=== PATIENT | male | born 1975 | race Caucasian/White ===

== ENCOUNTER 2020-07-20 09:03 | Emergency (ER) | payer OTHER ==
[2020-07-20 09:07] VITALS: BP 144/89; PULSE 84; TEMP 98.7; BMI 26.6
--- NOTE | 2020-07-20 09:23 | PDOC ---
History of Present Illness - General Chief Complaint: Rash Stated Complaint: RASH Time Seen by Provider: 07/20/20 09:10 History Source: Patient Exam Limitations: No Limitations - History of Present Illness Initial Comments: 07/20/20 09:36 Patient is a 45-year-old male with no past medical history who presents to the ED with complaint of a rash on his left ankle that itches and arias for the last 3 weeks. 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 He denies any fevers or chills. He denies any rash elsewhere. He denies being outdoors or in the [place] very much. He has not taken anything for symptoms. He does admit to scratching the rash vigorously yesterday. He does state that the rash is getting bigger. Past History - Medical History Allergies/Adverse Reactions: Allergies Allergy/AdvReac Type Severity Reaction Status Date / Time No Known Allergies Allergy Verified 07/20/20 09:05 Home Medications: Ambulatory Orders Cephalexin [Keflex] 500 mg PO BID 7 Days #14 capsule 07/20/20 Clotrimazole/Betamethasone Dip [Clotrimazole-Betamethasone Crm] 45 gm TP BID 7 Days #1 tube 07/20/20 COPD: No Other medical history: DENIES - Immunization History Immunization Up to Date: Yes - Psycho-Social/Smoking History Smoking History: Never smoked - Substance Abuse Hx (Audit-C & DAST Scrn) How often the patient has a drink containing alcohol: Never Score: In Men: 4 or > Positive; In Women: 3 or > Positive: 0 Screen Result (Pos requires Nsg. Audit-10AR): Negative In the last yr the pt used illegal drug/Rx for NonMed reason: No Score: Yes response is considered Positive: 0 Screen Result (Positive result requires Nsg. DAST-10): Negative Review of Systems - Review of Systems Comments:: 07/20/20 09:37 - Review of Systems Able to Perform ROS?: Yes Constitutional: No: Fever, Chills, Loss of Appetite, Night Sweats, Weakness HEENTM: No: Eye Pain, Vision changes, Ear Pain, Throat Pain, Throat Swelling, Mouth Pain, Difficulty Swallowing Respiratory: No: Cough, Shortness of Breath, Wheezing, Sputum Production Cardiac (ROS): No: Chest Pain, Chest Tightness, Palpitations, Irregular Heart Beat, Edema ABD/GI: No: Nausea, Vomiting, Abdominal Pain, Diarrhea Musculoskeletal: No: Muscle Pain, Back Pain, Joint Pain, Muscle Weakness, Neck Pain Integumentary: No: Lesions, positive: Rash on the left ankle Neurological: No: Headache, Numbness, Tingling, Weakness, Speech Difficulties *Physical Exam - Vital Signs Last Vital Signs Temp Pulse Resp BP Pulse Ox 98.7 F 84 18 144/89 100 07/20/20 09:05 07/20/20 09:05 07/20/20 09:05 07/20/20 09:05 07/20/20 09:05 - Physical Exam 07/20/20 09:37 - Physical Exam General Appearance: Nourished, Appropriately Dressed, No Distress HEENT: EOMI, Normal Voice, Hearing Grossly Normal Neck: Supple, No Lymphadenopathy (R), No Lymphadenopathy (L), No Rigidity, No Decreased range of motion Respiratory/Chest: Lungs Clear, Normal Breath Sounds. No Respiratory Distress, No Accessory Muscle Use Cardiovascular: Regular Rhythm, Regular Rate, S1, S2 Musculoskeletal: Normal Inspection. No Decreased Range of Motion Extremity: Normal Capillary Refill, Normal Inspection Integumentary: Normal Color, Dry. There is a well-circumscribed rash to the left ankle with scaly borders and central clearing consistent with tinea corporis. There are also multiple maculopapular lesions surrounding the rash. There is no vesicles. There is no drainage. There is no tenderness to palpation. There is mild warmth to touch. There is possible surrounding cellulitis appreciated. 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 Plan: -clotrimazole/betamethasone Rx sent to pharmacy -Keflex sent to pharmacy for possible overlying infection -Pt to f/u with his primary doctor within 1 to 2 weeks for repeat evaluation. He understands and agrees with this treatment plan he is stable for discharge. Discharge - Discharge Information Problems reviewed: Yes Clinical Impression/Diagnosis: Tinea corporis, Cellulitis of left ankle Condition: Stable Disposition: HOME - Additional Discharge Information Prescriptions: Clotrimazole/Betamethasone Dip [Clotrimazole-Betamethasone Crm] 45 gm TP BID 7 Days #1 tube Cephalexin [Keflex] 500 mg PO BID 7 Days #14 capsule - Follow up/Referral Referrals: [facility] [place] [Provider Group] - Patient Discharge Instructions Patient Printed Discharge Instructions: DI for Cellulitis -- Adult, DI for Brigida a Corporis Additional Instructions: Use the cream as prescribed, twice daily, for 1 full week. Take the antibiotics as prescribed and complete the entire course. Be sure to follow-up with primary care within the next 3 to 4 days to make sure that you are infection is getting better. Keep the area clean and dry. - Post Discharge Activity Work/Back to School Note: Back to Work
== END 2020-07-20 09:45 | disposition home or self-care (01) ==
LOC: JERFT 09:03
DX: B35.3 Tinea pedis (principal); L03.116 Cellulitis of left lower limb
CPT/HCPCS: 99282-25

== ENCOUNTER 2022-04-11 08:26 | Emergency (ER) | payer OTHER ==
[2022-04-11 08:45] VITALS: TEMP 98.1; BMI 26.3
[2022-04-11 11:25] VITALS: BP 127/67; PULSE 78
[2022-04-12 10:07] LABS: SARS-CoV-2 NAA Not Detected (Not Detected)
== END 2022-04-11 11:25 | disposition home or self-care (01) ==
LOC: JER 08:26
DX: R05.1 Acute cough (principal); J06.9 Acute upper respiratory infection, unspecified
CPT/HCPCS: 71046-TC-FY; 99284-25; C9803-CS; U0003; U0005